=== PATIENT | male | born 1975 | race Caucasian/White ===

== ENCOUNTER 2019-03-16 10:32 | Emergency (ER) | payer OTHER ==
[~2019-03-16] VITALS: Ht 177.8 cm; Wt 127.0 kg
[~2019-03-16 10:32] MED LIST: ASPIR 8181 MG PO; BACTRIM DS TAB1 EACH PO; CLARITIN-D 241 EACH PO; CLARITIN10 M2 PO; FLONASE ALLERG9.9 ML NS; HYDROCHLOROTH12.5 MG PO; IBUPROFEN400 MG PO; IBUPROFEN600 MG PO; KEFLEX500 MG PO; LOSARTAN POTASS50 MG PO; METFORMIN HCL500 MG PO; NAPROXEN500 MG PO; NORCO 5-325 TA1 EACH PO; OXYCODON-ACETA1 EAC2 PO; PERCOCET 7.5-31 EACH PO; ST. JOHN'S WOR300 M1 PO; TYLENOL325 MG PO
== END 2019-03-16 12:18 | disposition home or self-care (01) ==
LOC: ED 10:32
DX: I88.0 Nonspecific mesenteric lymphadenitis (principal); Z88.0 Allergy status to penicillin; Z85.828 Personal history of other malignant neoplasm of skin; Z79.899 Other long term (current) drug therapy
CPT/HCPCS: 74177; 80053; 83690; 85025; 99284-25; J1885; J2405; J7030; Q9967